=== PATIENT | male | born 1985 | race Caucasian/White ===

== ENCOUNTER 2022-05-13 10:06 | Outpatient (CLI) | payer OTHER ==
[~2022-05-13] VITALS: Ht 193 cm; Wt 102.4 kg
[~2022-05-13 10:06] MED LIST: OMEP40CA36 PO; PNT40TEC PO; SCR1T1 PO
[2022-05-13] MEDS ORDERED: MONT-40 PO (11:08)
[2022-05-13] MEDS ORDERED: PANT40TA52 PO (11:08)
== END 2022-05-13 11:12 | disposition home or self-care (01) ==
LOC: PREOP 10:06
PROVIDERS: ATTEND Surgery
DX: Z01.818 Encounter for other preprocedural examination (principal)

== ENCOUNTER 2022-05-19 13:59 | Day surgery (SDC) | payer OTHER ==
[~2022-05-19] VITALS: Ht 193 cm; Wt 102.4 kg
[~2022-05-19 13:59] MED LIST changes: +MONT-40 PO; +PANT40TA52 PO
[2022-05-19] MEDS ORDERED: LACTATED RINGERS 1,000 ML IV STA (14:01)
[2022-05-19] MEDS ORDERED: HURRICAINE EXT TUBE (BENZOCAINE) XX PRN (14:15)
[2022-05-19] MEDS ORDERED: LIDOCAINE JELLY 2% 6 ML SYRINGE MM PRN (14:15)
[2022-05-19 14:20] VITALS: BP 148/104
[2022-05-19] MEDS ORDERED: MIDAZOLAM 2 MG/2 ML (VERSED) VIAL ONE (14:50)
[2022-05-19] MEDS ORDERED: PROPOFOL INJECTION 50 ML IV ONE (14:51)
--- NOTE | 2022-05-19 14:52 | Progress Note-Pre Operative ---
Pre-Operative Progress Note Date of Available H&P: May 19, 2022 Date H&P Reviewed: May 19, 2022 Time H&P Reviewed: 14:30 History & Physical: No changes noted Pre-Operative Diagnosis: GERD, dysphagia ALFONSO MOLINA MD May 19, 2022 14:52
--- NOTE | 2022-05-19 14:53 | Discharge Inst-Surgical ---
D/C Lap Instructions-TRACY Follow Up Activity as tolerated High Fiber Diet 25g or more per day Avoid Alcohol, Caffeine, Spicy [place] and Acid foods. Drink 64 fluid oz or more of fluids per day. Symptoms to Report: Fever over 101 degree F, Nausea/Vomiting If any problems/questions: Contact your physician or go to Emergency Room ALFONSO MOLINA MD May 19, 2022 14:53
[2022-05-19] MEDS ORDERED: ONDANSETRON 4 MG/2 ML (SDV) Z0FRAN IVP PRN (15:00)
[2022-05-19] MEDS ORDERED: ONDANSETRON 4 MG (ZOFRAN) ORAL DISSOLVE TAB PO PRN (15:00)
[2022-05-19 15:16] VITALS: BP 138/91
[2022-05-19 15:21] VITALS: BP 146/87
[2022-05-19 15:25] VITALS: BP 146/87
[2022-05-19 15:50] VITALS: BP 146/87
--- NOTE | 2022-05-20 03:17 | OPERATIVE REPORT ---
DATE OF SERVICE: 05/19/2022 ATTENDING PRIMARY CARE PHYSICIAN: Meghan Wolff MD. PREOPERATIVE DIAGNOSIS: Dysphagia with a history of eosinophilic esophagitis. POSTOPERATIVE DIAGNOSES: Reflux esophagitis, [place] between grade B and C with a stricture versus hypertonic lower esophageal sphincter. No hiatal hernia. Moderate gastritis with a small healed antral ulcer. No distal obstructions. PROCEDURE: EGD with biopsy and balloon dilatation. SURGEON: Alfonso Molina MD. ANESTHESIA: Monitored anesthesia care. ESTIMATED BLOOD LOSS: Minimal. FINDINGS: Same as postoperative diagnoses. DISPOSITION: The patient tolerated the procedure well. INDICATIONS: The patient is a 37-year-old male known to us. We had initially seen him in 2013 for dysphagia. He underwent an EGD with biopsy and was found to have reflux esophagitis between grade B and C as well as a mild gastritis. Biopsies were negative for H. pylori as well as negative for Neri's esophagus; however, there were numerous intraepithelial eosinophils, which may have indicated an eosinophilic esophagitis. He has been on Protonix since that time and states that he has overall felt better; however, has had recurrent issues with dysphagia for specific types of foods. He does not report any episodes of nausea or vomiting as well as no hematemesis, no coffee-ground emesis. DESCRIPTION OF PROCEDURE: The patient was brought to the endoscopy suite and laid in the left lateral decubitus position. After adequate IV pain and sedative medications and monitored anesthesia care, a mouthpiece was applied. The endoscope was placed in the mouth to visualize the pharynx and hypopharyngeal region. Vocal cords, epiglottis and vallecula identified and appeared to be normal. The endoscope was then gently intubated into the esophageal opening. Esophagus was insufflated. The endoscope was then advanced through the first, second and third portions of the esophagus at the level of the GE junction, a reflux esophagitis between grade B and C identified with either a distal esophageal stricture versus hypertonic lower esophageal sphincters. Biopsy was taken of the GE junction with forceps with visualization of good hemostasis. The endoscope was then advanced into the stomach and the endoscope was retroflexed, visualizing no hiatal hernia. There was a moderate gastritis with a small healed antral ulceration. Biopsy was taken of the antrum to rule out H. pylori with visualization of good hemostasis. The endoscope was then advanced through the pylorus and the first and second portion of the duodenum, which appeared normal with no distal obstructions. The balloon was then placed in the stomach and pulled back to the area of the stricture. We then proceeded with graded dilatation from 2, 4, then eventually 5 atmospheres of pressure and moderate resistance and approximately 19.5 mm in luminal diameter and left this in place for approximately 60 seconds. The balloon was then desufflated and removed with visualization of good hemostasis with no mucosal tears or any bleeding. The endoscope was slowly withdrawn, while taking a second look at suctioning of residual air with no additional findings. The patient tolerated the procedure well. We will recommend the necessary lifestyle and dietary accommodations including small and more frequent meals, avoidance of eating at night as well as head elevation while lying supine. He is a former smoker and we do not want him to do any nicotine products including vaping or chewing tobacco. We also will recommend avoidance of alcoholic beverages, caffeinated beverages and spicy, greasy and acidic foods. We will also proceed with treatment for eosinophilic esophagitis with Flovent 220 mcg 4 puffs b.i.d. for 6 weeks. If he does have recurrent dysphagia, we will have followup for repeat dilatation. Job ID: [id number] DocumentID: [id number] Dictated Date: 05/19/2022 15:21:53 Pipe Line Walker Date: 05/20/2022 03:14:00 Dictated By: ALFONSO MOLINA MD
--- NOTE | 2022-05-20 13:05 | Anesthesia-General Post-Op ---
MAC Significant Intra-Op Events Notes late entry 05/19/22 @ 1530 Patient Condition Mental Status/LOC: Same as Preop Cardiovascular: Satisfactory Nausea/Vomiting: Absent Respiratory: Satisfactory Pain: Controlled Complications: Absent Post Op Complications Complications None Follow Up Care/Instructions Patient Instructions None needed. Anesthesiology Discharge Order Discharge Order Patient is doing well, no complaints, stable vital signs, no apparent adverse anesthesia problems. No complications reported per nursing. NOLBERTO FUNES CRNA May 20, 2022 13:05
== END 2022-05-19 15:58 | disposition home or self-care (01) ==
LOC: ENDO 13:59
PROVIDERS: ATTEND Surgery
DX: K21.00 Gastro-esophageal reflux disease with esophagitis, without bleeding (principal); K29.50 Unspecified chronic gastritis without bleeding; K22.2 Esophageal obstruction; Z87.891 Personal history of nicotine dependence
CPT/HCPCS: 88305